=== PATIENT | female | born 1950 | race Caucasian/White ===

== ENCOUNTER → 2024-06-10 | Outpatient (CLI) | payer MEDICARE, MEDICAID ==
[~2024-06-10] MED LIST: IODIXANOL 320 MG/ML INFUS..BTL 100ML IV ONE
[2024-06-10 11:21] LABS: BASOPHILS % (AUTO) 0.5 % (0-1); EOSINOPHILS # (AUTO) 0.2 X10'3 (0-0.9); EOSINOPHILS % (AUTO) 2.9 % (0-6); HEMATOCRIT 38.9 % (35.0-45.0); LYMPHOCYTES # (AUTO) 1.8 X10'3 (1.1-4.8); LYMPHOCYTES % (AUTO) 29.4 % (21-51); MEAN CORPUSCULAR HEMOGLOBIN 28.1 PG (27.0-31.0); MEAN CORPUSCULAR HGB CONC 33.5 g/dL (33.0-36.5); MEAN CORPUSCULAR VOLUME 83.8 FL (78-98); MEAN PLATELET VOLUME 8.2 FL (7.4-10.4); MONOCYTES # (AUTO) 0.6 X10'3 (0-0.9); MONOCYTES % (AUTO) 9.5 % (2-12); NEUTROPHILS # (AUTO) 3.6 X10'3 (1.8-7.7); NEUTROPHILS % (AUTO) 57.7 % (42-75); PLATELET COUNT 211 X10'3 (140-440); RED BLOOD COUNT 4.64 X10'6 (4.20-5.60); RED CELL DISTRIBUTION WIDTH 16.2 % (11.5-14.5); WHITE BLOOD COUNT 6.2 X10'3 (4.5-11.0)
[2024-06-10 11:33] LABS: APTT 25 SECONDS (22-32); PROTHROMBIN TIME 10.2 SECONDS (9.0-12.0)
[2024-06-10 11:42] LABS: ALANINE AMINOTRANSFERASE 24 U/L (12-78); ALBUMIN 3.7 G/DL (3.4-5.0); ALBUMIN/GLOBULIN RATIO 0.9 (1.1-1.5); ALKALINE PHOSPHATASE 82 IU/L (46-116); ANION GAP 10 (8-16); ASPARTATE AMINO TRANSFERASE 20 U/L (10-37); BILIRUBIN,TOTAL 0.4 MG/DL (0.1-1.0); BLOOD UREA NITROGEN 18 MG/DL (7-18); BUN/CREATININE RATIO 14.9 (10.0-20.0); CALCIUM 9.1 MG/DL (8.5-10.1); CHLORIDE 105 MMOL/L (99-107); CREATININE 1.21 MG/DL (0.40-0.90); GLUCOSE 129 MG/DL (70-104); POTASSIUM 3.9 MMOL/L (3.5-5.1); PRO BRAIN NATRIURETIC PEPTIDE 405 PG/ML (0-450); SODIUM 142 MMOL/L (135-145); TOTAL CARBON DIOXIDE 26.9 MMOL/L (24-32); TOTAL PROTEIN 7.8 G/DL (6.4-8.2); eGFR 43 ML/MIN
== END | disposition home or self-care (01) ==
LOC: RAD 10:47
PROVIDERS: ATTEND Internal Medicine Cardiovascular Disease
DX: I35.0 Nonrheumatic aortic (valve) stenosis (principal); R06.02 Shortness of breath; I65.29 Occlusion and stenosis of unspecified carotid artery
CPT/HCPCS: 36415; 71046; 80053; 83880; 85025; 85610; 85730; 93005; 93880; Q9967

== ENCOUNTER 2025-01-15 15:19 | Outpatient (CLI) | payer MEDICARE, MEDICAID ==
[~2025-01-15] VITALS: Ht 154.9 cm; Wt 88.0 kg
[2025-01-15] MEDS: albuterol 2.5 MG/3 ML nebule NEB ONE (16:21)
[2025-01-15 16:22] VITALS: PULSE 86; RESP 16; O2SAT 96
[2025-01-15 16:34] VITALS: PULSE 83; RESP 16
--- NOTE | 2025-01-19 13:50 | PROCEDURE NOTE - Respiratory ---
Procedure Note-Respiratory Providers to Copies To 1: ADRIANA CARBONE MD Procedure Name: This is a spirometry study dated January 15, 2025. The spirometry study was performed both before and after inhaled bronchodilator. Spirometry measurements: The forced vital capacity is in the lower range of normal. The FEV1 is clearly reduced. The FEV1 ratio is also reduced. All of the measured flow rates show significant reduction. After inhaled bronchodilators some of the flow rates show slight improvement. Conclusion: This study is abnormal. There is evidence for obstructive ventilatory defect in the [id number] category. The patient does show some improvement with inhaled bronchodilator. These findings suggest a diagnosis of asthma. This patient will likely show clinical improvement with the use of regular bronchodilator therapy. Beta-rosana therapy should be used in this patient only with caution. We have no previous studies for comparison. TYLER SIMON MD Jan 19, 2025 13:50
== END 2025-01-15 23:59 | disposition home or self-care (01) ==
LOC: RT 15:19
PROVIDERS: ATTEND Family Medicine
DX: R06.02 Shortness of breath (principal)
CPT/HCPCS: 94060; 94760